=== PATIENT | female | born 1955 | race Caucasian/White ===

== ENCOUNTER 2020-11-24 19:35 | Emergency (ER) | payer OTHER ==
[2020-11-24 23:08] LABS: BUN/CREATININE RATIO 26 (0-10)
[2020-11-24 23:26] LABS: HEMOGLOBIN 16.1 gm/dl (12.3-15.3); RED BLOOD COUNT 5.3 M/UL (4.00-5.10); WHITE BLOOD COUNT 10.4 K/UL (4.5-11.0)
== END 2020-11-25 05:51 | disposition home or self-care (01) ==
LOC: ER1 19:35
PROVIDERS: Emergency Medicine
DX: I10 Essential (primary) hypertension (principal); Z88.2 Allergy status to sulfonamides
CPT/HCPCS: 80053; 81001; 82550; 82553; 83735; 83874; 84100; 84484; 85025; 93005; 99283

== ENCOUNTER 2020-12-01 16:43 | Emergency (ER) | payer OTHER ==
[2020-12-01 17:49] LABS: HEMOGLOBIN 16.2 gm/dl (12.3-15.3); RED BLOOD COUNT 5.18 M/UL (4.00-5.10); WHITE BLOOD COUNT 8.7 K/UL (4.5-11.0)
[2020-12-01 18:08] LABS: BUN/CREATININE RATIO 27 (0-10)
== END 2020-12-01 21:35 | disposition home or self-care (01) ==
LOC: ER1 16:43
PROVIDERS: Physician Assistant Medical
DX: I10 Essential (primary) hypertension (principal); E78.00 Pure hypercholesterolemia, unspecified; Z90.49 Acquired absence of other specified parts of digestive tract; Z90.710 Acquired absence of both cervix and uterus; Z88.1 Allergy status to other antibiotic agents; Z88.2 Allergy status to sulfonamides; Z79.01 Long term (current) use of anticoagulants; Z79.899 Other long term (current) drug therapy; Z90.89 Acquired absence of other organs; Z79.82 Long term (current) use of aspirin
CPT/HCPCS: 71045; 80053; 82550; 82553; 83874; 83880; 84439; 84443; 84484; 85025; 85379; 93005; 99285

== ENCOUNTER → 2020-12-19 | Outpatient (CLI) | payer OTHER | LOC: HEART 5 15:00 | DX: R94.31 Abnormal electrocardiogram [ECG] [EKG] (principal); R93.1 Abnormal findings on diagnostic imaging of heart and coronary circulation; I11.9 Hypertensive heart disease without heart failure | CPT/HCPCS: 93306 ==

== ENCOUNTER → 2021-08-31 | Outpatient (CLI) | payer OTHER | LOC: EXRD 08-24 09:56 | DX: I73.9 Peripheral vascular disease, unspecified (principal); R60.0 Localized edema | CPT/HCPCS: 93922; 93925; 93970 ==

== ENCOUNTER → 2022-05-07 | Outpatient (CLI) | payer OTHER | LOC: US 04-30 09:30 → CT 08:20 | DX: I10 Essential (primary) hypertension (principal); N13.2 Hydronephrosis with renal and ureteral calculous obstruction; N28.1 Cyst of kidney, acquired; K76.0 Fatty (change of) liver, not elsewhere classified | CPT/HCPCS: 74170; 93975; Q9967 ==